=== PATIENT | female | born 1970 ===

== ENCOUNTER 2017-06-12 08:17 | Outpatient (CLI) | payer OTHER ==
--- NOTE | 2017-06-13 09:02 | Mammography Report ---
Screening mammogram: Routine views demonstrates a generally fatty replaced bronchovascular pattern bilaterally. There is however an area of asymmetric tissue density in the superior right breast. The findings are not otherwise remarkable. CAD used. Impression: Right asymmetry. Recommendation: Displaces prior exams are being requested for comparison before final recommendation. BI-RADS CATEGORY: 0 = Needs additional imaging evaluation ACR BI-RADS MAMMOGRAPHIC CODES: 0 = Needs additional imaging evaluation; 1 = Negative; 2 = Benign; 3 = Probably benign; 4 = Suspicious; 5 = Malignant; 6 = Known biopsy-proven malignancy COMMENT: 1. Dense breast tissue, i.e., adenosis, fibrocystic changes, etc., may obscure an underlying neoplasm. 2. Approximately 10% of cancers are not detected with mammography. 3. A negative mammography report should not delay biopsy if a clinically suspicious mass is present.
== END 2017-06-12 08:18 | disposition home or self-care (01) ==
LOC: SPVWC 08:17
PROVIDERS: ATTEND Family Medicine
DX: Z12.31 Encounter for screening mammogram for malignant neoplasm of breast (principal)
CPT/HCPCS: 77067